=== PATIENT | male | born 1950 | race Caucasian/White ===

== ENCOUNTER 2017-11-13 09:32 | Observation (INO) | payer MEDICARE, OTHER ==
--- NOTE | 2017-11-13 09:47 | EDM.PDOC ---
ED HPI GENERAL MEDICAL PROBLEM - General Stated Complaint: ER VISIT Time Seen by Provider: 11/13/17 09:35 Source of Information: Reports: Patient, Family History Limitations: Reports: Altered Mental Status - History of Present Illness INITIAL COMMENTS - FREE TEXT/NARRATIVE: PT is brought into the emergency department for conmplaints of confusion. Last known well time was approximately 8 AM. Patient left the house at that time to go do chores in the yard. He came back in the house at approximately 8:45. Very confused unsure of the date the place where he was. He did tell his that he thinks he was sitting outside for 45 minutes. He could not give a description why. He cannot recall the last 24 hours. The is concerned/ questioning that he may have fallen off his grain cart he was working on. Pt is not on any blood thinners. Health history-high blood pressure. Last ate- Last night No major surgeries or bleeding in the past 3 months Onset: Sudden Location: Reports: Head Quality: Reports: Throbbing Associated Symptoms: Reports: Confusion - Related Data Allergies Allergy/AdvReac Type Severity Reaction Status Date / Time No Known Allergies Allergy Verified 11/13/17 09:51 Home Meds: Home Meds Aspirin 81 mg PO DAILY 11/13/17 [History] Metoprolol Succinate [Toprol XL] 200 mg PO DAILY 11/13/17 [History] Nitroglycerin [Nitrostat] 0.4 mg SL ASDIRECTED PRN 11/13/17 [History] Rosuvastatin [Crestor] 40 mg PO DAILY 11/13/17 [History] Spironolact/Hydrochlorothiazid [Aldactazide 25-25] 0.5 tab PO DAILY 11/13/17 [ History] Valsartan/Hydrochlorothiazide [Diovan Hct 320-25 mg Tablet] 1 each PO DAILY [History] amLODIPine Besylate [Norvasc] 5 mg PO DAILY 11/13/17 [History] Past Medical History Cardiovascular History: Reports: Hypertension, ID (13 yrs ago. 2 stents-Lad, Diag) - Past Surgical History HEENT Surgical History: Reports: Cataract Surgery (with lenses Jun 2017) ED ROS GENERAL - Review of Systems Review Of Systems: See Below HEENT: Reports: No Symptoms Respiratory: Reports: No Symptoms Cardiovascular: Reports: No Symptoms Endocrine: Reports: No Symptoms GI/Abdominal: Reports: No Symptoms : Reports: No Symptoms Musculoskeletal: Reports: No Symptoms Skin: Reports: No Symptoms Neurological: Reports: No Symptoms Psychiatric: Reports: No Symptoms ED EXAM, GENERAL - Physical Exam Exam: See Below Exam Limited By: No Limitations General Appearance: Alert, WD/WN, No Apparent Distress Throat/Mouth: Normal Inspection, Normal Lips, Normal Teeth, Normal Oropharynx, Normal Voice Head: Other (tenderness to the back of the head, a reden/purple line at the base of the skull horizontal approx 6 inch noted. No cerival tenderness, deformity, or discomfort ) Neck: Normal Inspection, Supple, Non-Tender, Full Range of Motion Respiratory/Chest: No Respiratory Distress, Lungs Clear, Normal Breath Sounds, No Accessory Muscle Use, Chest Non-Tender Cardiovascular: Normal Peripheral Pulses, Regular Rate, Rhythm Rectal (Males) Exam: Normal Exam, Normal Rectal Tone Back Exam: Normal Inspection, Full Range of Motion Extremities: Normal Inspection, Normal Range of Motion, Non-Tender, No Pedal Edema, Normal Capillary Refill Neurological: Alert, Normal Gait, No Motor/Sensory Deficits, Confused, Disoriented, Memory Loss Recent Events. No: Normal Cognition Psychiatric: Normal Affect, Normal Mood Skin Exam: Warm, Dry, Intact, Normal Color, No Rash Course - Vital Signs Last Recorded V/S: Last Vital Signs Temp 35.3 C 11/13/17 09:35 Pulse 69 11/13/17 09:35 Resp 14 11/13/17 09:35 BP 174/90 H 11/13/17 09:35 Pulse Ox 96 11/13/17 09:35 - Orders/Labs/Meds Orders: Active Orders 24 hr Category Date Time Status Cervical Spine wo Cont [CT] Stat Exams 11/13/17 10:00 Taken Head wo Cont [CT] Stat Exams 11/13/17 09:40 Taken Labs: Laboratory Tests 11/13/17 11/13/17 11/13/17 Range/Units 09:51 09:51 09:51 WBC 7.3 (4.0-10.0) x10^3/uL RBC 5.12 (4.5-6.0) x10^6/uL Hgb 14.7 (14.0-18.0) g/dL Hct 45.0 (40.0-52.0) % MCV 87.9 (78.0-93.0) fL MCH 28.7 (26.0-32.0) pg MCHC 32.7 (32.0-36.0) g/dL RDW Coeff of Trish 14.6 (10.0-15.0) % Plt Count 202 (130-400) x10^3/uL Neut % (Auto) 79.2 (50.0-80.0) % Lymph % (Auto) 13.6 L (25.0-50.0) % [place] % (Auto) 5.1 (2.0-11.0) % Eos % (Auto) 1.8 (0.0-4.0) % Baso % (Auto) 0.3 (0.2-1.2) % PT 11.0 (9.6-11.4) SEC INR 1.1 L (2.0-3.5) Sodium 143 (136-145) mmol/L Potassium 3.4 L (3.5-5.1) mmol/L Chloride 106 (98-107) mmol/L Carbon Dioxide 29 (21-32) mmol/L Anion Gap 11.4 (10-20) mmol/L BUN 23 H (7-18) mg/dL Creatinine 1.1 (0.70-1.30) mg/dL Est Cr Clr Drug Dosing TNP Estimated GFR (MDRD) > 60 Glucose 150 H (74-106) mg/dL Calcium 8.8 (8.5-10.1) mg/dL Corrected Calcium 9.20 (8.5-10.1) mg/dL Total Bilirubin 0.5 (0.2-1.0) mg/dL AST 17 (15-37) U/L ALT 32 (16-63) U/L Alkaline Phosphatase 65 (46-116) U/L Troponin I < 0.017 (<=0.056) ng/mL Total Protein 7.1 (6.4-8.2) g/dL Albumin 3.5 (3.4-5.0) g/dL Globulin 3.6 Albumin/Globulin Ratio 0.97 - Radiology Interpretation CT Results Date: 11/13/17 (Negative findings for CT of head and c-spine. ) - Re-Assessments/Exams Free Text/Narrative Re-Assessment/Exam: 11/13/17 10:23 Re-assessment: pt states his head and neck are sore especially tender when touching soft tissue of the neck and left shoulder. He is remembering that he was sweeping the back of the grain truck. The back of his sweatshirt was full of grass and dirt. "I think I fell off the truck". 11/13/17 11:09 Pt continues to improve mentation. He remembers what he had for breakfast and the events that occurred yesterday which he was unable to remember initially. Departure - Departure Time of Disposition: 10:55 Disposition: Refer to Observation Condition: Good Clinical Impression: Concussion injury of brain - Discharge Information Instructions: Head Injury, Adult - Problem List Review Problem List Initiated/Reviewed/Updated: Yes - My Orders Last 24 Hours: My Active Orders 11/13/17 09:40 Head wo Cont [CT] Stat 11/13/17 10:00 Cervical Spine wo Cont [CT] Stat - Assessment/Plan Admission H&P: Please use this note as an admission H&P Last 24 Hours: My Active Orders 11/13/17 09:40 Head wo Cont [CT] Stat 11/13/17 10:00 Cervical Spine wo Cont [CT] Stat Assessment:: 1. Head injury 2. Confusion/disorientation Plan: 1. CT scan results reviewed with pt and spouse- negative findings 2. Labs completed in ER and results reviewed with the pt and spouse 3. Will admit pt overnight for observation. Still has a memory lapse of obvious events that occurred this morning. It is recommended that the patient be admitted for the next 24 hours to watch patient's mentation and insure he does not develop with bleed or worsening conditions. No abnormalities are found over the next 24 hours patient will be discharged in the morning to home. 4. Admit orders place in the computer system. patient discharged from emergency department and placed on the medical surgical unit.
[2017-11-13 10:22] LABS: CHLORIDE,CL 106 mmol/L (98-107); SODIUM,NA 143 mmol/L (136-145)
--- NOTE | 2017-11-13 11:28 | PCM.PN ---
- General Info Date of Service: 11/13/17 Admission Dx/Problem (Free Text): 1. concussion 2. Disorientation 3. Head injury Functional Status: Reports: Pain Controlled, Tolerating Diet, Ambulating Pain Score: 4 - Review of Systems General: Reports: No Symptoms HEENT: Reports: No Symptoms Pulmonary: Reports: No Symptoms Cardiovascular: Reports: No Symptoms Gastrointestinal: Reports: No Symptoms Genitourinary: Reports: No Symptoms Musculoskeletal: Reports: No Symptoms Skin: Reports: No Symptoms Neurological: Reports: No Symptoms Psychiatric: Reports: No Symptoms - Patient Data Vitals - Most Recent: Last Vital Signs Temp 35.3 C 11/13/17 09:35 Pulse 69 11/13/17 09:35 Resp 14 11/13/17 09:35 BP 174/90 H 11/13/17 09:35 Pulse Ox 96 11/13/17 09:35 Lab Results Last 24 Hours: Laboratory Results - last 24 hr 11/13/17 11/13/17 11/13/17 Range/Units 09:51 09:51 09:51 WBC 7.3 (4.0-10.0) x10^3/uL RBC 5.12 (4.5-6.0) x10^6/uL Hgb 14.7 (14.0-18.0) g/dL Hct 45.0 (40.0-52.0) % MCV 87.9 (78.0-93.0) fL MCH 28.7 (26.0-32.0) pg MCHC 32.7 (32.0-36.0) g/dL RDW Coeff of Trish 14.6 (10.0-15.0) % Plt Count 202 (130-400) x10^3/uL Neut % (Auto) 79.2 (50.0-80.0) % Lymph % (Auto) 13.6 L (25.0-50.0) % [place] % (Auto) 5.1 (2.0-11.0) % Eos % (Auto) 1.8 (0.0-4.0) % Baso % (Auto) 0.3 (0.2-1.2) % PT 11.0 (9.6-11.4) SEC INR 1.1 L (2.0-3.5) Sodium 143 (136-145) mmol/L Potassium 3.4 L (3.5-5.1) mmol/L Chloride 106 (98-107) mmol/L Carbon Dioxide 29 (21-32) mmol/L Anion Gap 11.4 (10-20) mmol/L BUN 23 H (7-18) mg/dL Creatinine 1.1 (0.70-1.30) mg/dL Est Cr Clr Drug Dosing TNP Estimated GFR (MDRD) > 60 Glucose 150 H (74-106) mg/dL Calcium 8.8 (8.5-10.1) mg/dL Corrected Calcium 9.20 (8.5-10.1) mg/dL Total Bilirubin 0.5 (0.2-1.0) mg/dL AST 17 (15-37) U/L ALT 32 (16-63) U/L Alkaline Phosphatase 65 (46-116) U/L Troponin I < 0.017 (<=0.056) ng/mL Total Protein 7.1 (6.4-8.2) g/dL Albumin 3.5 (3.4-5.0) g/dL Globulin 3.6 Albumin/Globulin Ratio 0.97 Med Orders - Current: Current Medications Acetaminophen (Tylenol) 650 mg PO Q4H PRN PRN Reason: pain - Exam Quality Assessment: DVT Prophylaxis, Skin Breakdown General: Alert, Oriented HEENT: Pupils Equal, Pupils Reactive, EOMI, Mucous Membr. Moist/[place] Neck: Supple Cardiovascular: Regular Rate, Regular Rhythm GI/Abdominal Exam: Normal Bowel Sounds, Soft, Non-Tender, No Distention, No Abnormal Bruit Back Exam: Normal Inspection, Full Range of Motion Extremities: Normal Inspection, Normal Range of Motion, Non-Tender, No Pedal Edema, Normal Capillary Refill Skin: Warm, Dry, Intact Neurological: Normal Gait, Normal Speech, Normal Tone, Strength Equal Bilateral , Reflexes Equal Bilateral, Sensation Intact, Cranial Nerves Intact, Other ( recent memory limited ) Psy/Mental Status: Alert, Normal Affect, Normal Mood - Problem List Review Problem List Initiated/Reviewed/Updated: Yes - My Orders Last 24 Hours: My Active Orders 11/13/17 09:40 Head wo Cont [CT] Stat 11/13/17 10:00 Cervical Spine wo Cont [CT] Stat 11/13/17 11:04 Admission Status [Patient Status] [ADT] Routine 11/13/17 11:11 Resuscitation Status Routine 11/13/17 11:12 Patient Status [ADT] Routine Oxygen Therapy [RC] PRN VTE/DVT Education [RC] PER UNIT ROUTINE Vital Signs [RC] Q4H 11/13/17 11:14 Up ad Zaira [RC] ASDIRECTED Vital Signs [RC] Q4H Acetaminophen [Tylenol] 650 mg PO Q4H PRN DVT/VTE Prophylaxis Reflex [OM.PC] Routine 11/13/17 11:16 Antiembolic Devices [RC] .Routine VTE/DVT Education [RC] PER UNIT ROUTINE 11/13/17 Lunch Regular Diet [DIET] - Assessment Assessment:: 1. Concussion 2. Disorientation 3. Head injury - Plan Plan:: 1. He was admitted to the emergency department after unkown cause of confusion/ disorientation. Initially and is emergency room visit he could not recall the previous 24 hours. Also stated that he had some muscle tenderness on the right upper shoulder neck region along with a headache. Patient had begun remembering some of the events of the morning however they were pretty limited. The states that he went out this morning around 8 AM and was to be working and is grain truck. He came in the house 45 mins later and did have dirt and grass all over the back of his shirt and on his shoulder. Patient is unsure what happened - but does remember he was sweeping the back of the truck out. Patient was disoriented and was not able to recall any of the events was asking frequent and repeat questions to his . He is brought into the emergency department for further evaluation and treatment. Labs were negative CT was negative. However with patient's limited memory its advised that the patient be admitted and monitored for the next 24 hours to ensure symptoms do not worsen. Pt is up and ambulatory with mild muscle soreness. Denies any other sxs at this time.
[2017-11-13] MEDS ORDERED: NITROGLYCERIN 0.4 MG SL PRN (12:27)
[2017-11-13] MEDS: Acetaminophen 325 MG Tab PO PRN ×2 (12:56→17:47)
[2017-11-13] MEDS ORDERED: Aspirin 81 MG Tab.EC*PT OWN MED PO SCH (20:00)
[2017-11-13] MEDS ORDERED: ROSUVASTATIN 40 MG PO SCH (20:00)
[2017-11-14] MEDS ORDERED: VALSARTAN PO SCH (08:00)
[2017-11-14] MEDS ORDERED: HYDROCHLOROTHIAZIDE PO SCH (08:00)
--- NOTE | 2017-11-14 09:45 | PCM.DCSUM1 ---
Discharge Summary - Hospital Course HPI Initial Comments: PT was brought into the emergency department for complaints of confusion. Pt was very confused and could not remember the 24 hours prior to his visit to the ER. Initially it was unsure if the pt had fallen off of a grain truck he was working on or if he could be having a medical emergency. A CT was ordered and Labs. While pt was in the ER some isolated memory began to come back. Pt was working on his grain truck and he remembered trying to get out of the truck and then remember being on the ground and needing to wipe his shoulder and back off. Unknown if pt was unconscious but due to the time frame and pt's condition it is likely he had a period of consciousness. CT scan was negative, labs were negative, vitals remained within pt's normal. It was decided based on the pt's overall condition and severity of his memory lapse he would be best cared for if he would be placed in observation over night incase worsening confusion or a head bleed would develop. During the night the pt needed PRN tylenol for a mild headache and muscle discomfort. Pt was ambulatory walking the halls without assistance, eating food without becoming nauseated, and slept throughout the night without concern. Pt states he feels much better than yesterday and his memory has returned almost to his baseline. Pt still has about an hour of time he does not remember however, everything else he is able to recall without concern. - Discharge Data Discharge Date: 11/14/17 Discharge Disposition: Home, Self-Care 01 Condition: Good - Discharge Diagnosis/Problem(s) (1) Concussion injury of brain SNOMED Code(s): 424241267 ICD Code: S06.0X9A - CONCUSSION W LOSS OF CONSCIOUSNESS OF UNSP DURATION, INIT Status: Acute Current Visit: Yes - Patient Instructions Diet: Regular Diet as Tolerated Driving: Do Not Drive Driving, Other: Please refrain from driving for 1 week to allow time for healing Showering/Bathing: May Shower - Discharge Plan Home Medications: Home Meds Aspirin [Ecotrin] 81 mg PO BEDTIME 11/13/17 [History] Metoprolol Succinate [Toprol XL] 100 mg PO BID 11/13/17 [History] Nitroglycerin [Nitrostat] 0.4 mg SL ASDIRECTED PRN 11/13/17 [History] Rosuvastatin [Crestor] 40 mg PO BEDTIME 11/13/17 [History] Valsartan/Hydrochlorothiazide [Diovan Hct 320-25 mg Tablet] 1 each PO DAILY [History] Acetaminophen [Tylenol] 650 mg PO Q4H PRN tablet 11/14/17 [Rx] Patient Handouts: Concussion, Adult, [id number], Head Injury, Adult Forms: Return to Work/Inpatient [facility] Referrals: Vladimir Rowe PA-C [Primary Care Provider] - - General Info Date of Service: 11/14/17 Functional Status: Reports: Pain Controlled, Tolerating Diet, Ambulating, Urinating - Review of Systems General: Reports: No Symptoms HEENT: Reports: No Symptoms Pulmonary: Reports: No Symptoms Cardiovascular: Reports: No Symptoms Gastrointestinal: Reports: No Symptoms Genitourinary: Reports: No Symptoms Musculoskeletal: Reports: No Symptoms Skin: Reports: No Symptoms Neurological: Reports: No Symptoms Psychiatric: Reports: No Symptoms - Patient Data Vitals - Most Recent: Last Vital Signs Temp 36.9 C 11/14/17 05:16 Pulse 66 11/14/17 05:16 Resp 19 11/14/17 05:16 BP 132/74 11/14/17 05:16 Pulse Ox 96 11/14/17 07:19 Weight - Most Recent: 124.398 kg I&O - Last 24 hours: Intake & Output 11/13/17 11/14/17 11/14/17 22:59 06:59 14:59 Intake Total 540 350 540 Balance 540 350 540 Lab Results - Last 24 hrs: Laboratory Results - last 24 hr 11/13/17 11/13/17 11/13/17 Range/Units 09:51 09:51 09:51 WBC 7.3 (4.0-10.0) x10^3/uL RBC 5.12 (4.5-6.0) x10^6/uL Hgb 14.7 (14.0-18.0) g/dL Hct 45.0 (40.0-52.0) % MCV 87.9 (78.0-93.0) fL MCH 28.7 (26.0-32.0) pg MCHC 32.7 (32.0-36.0) g/dL RDW Coeff of Trish 14.6 (10.0-15.0) % Plt Count 202 (130-400) x10^3/uL Neut % (Auto) 79.2 (50.0-80.0) % Lymph % (Auto) 13.6 L (25.0-50.0) % [place] % (Auto) 5.1 (2.0-11.0) % Eos % (Auto) 1.8 (0.0-4.0) % Baso % (Auto) 0.3 (0.2-1.2) % PT 11.0 (9.6-11.4) SEC INR 1.1 L (2.0-3.5) Sodium 143 (136-145) mmol/L Potassium 3.4 L (3.5-5.1) mmol/L Chloride 106 (98-107) mmol/L Carbon Dioxide 29 (21-32) mmol/L Anion Gap 11.4 (10-20) mmol/L BUN 23 H (7-18) mg/dL Creatinine 1.1 (0.70-1.30) mg/dL Est Cr Clr Drug Dosing TNP Estimated GFR (MDRD) > 60 Glucose 150 H (74-106) mg/dL Calcium 8.8 (8.5-10.1) mg/dL Corrected Calcium 9.20 (8.5-10.1) mg/dL Total Bilirubin 0.5 (0.2-1.0) mg/dL AST 17 (15-37) U/L ALT 32 (16-63) U/L Alkaline Phosphatase 65 (46-116) U/L Troponin I < 0.017 (<=0.056) ng/mL Total Protein 7.1 (6.4-8.2) g/dL Albumin 3.5 (3.4-5.0) g/dL Globulin 3.6 Albumin/Globulin Ratio 0.97 Med Orders - Current: Current Medications Acetaminophen (Tylenol) 650 mg PO Q4H PRN PRN Reason: pain Last Admin: 11/13/17 17:47 Dose: 650 mg Aspirin (Halfprin) 81 mg PO BEDTIME RAZA Last Admin: 11/13/17 19:40 Dose: 81 mg Nitroglycerin (Nitrostat) 0.4 mg SL ASDIRECTED PRN PRN Reason: Pain (Metoprolol Succinate [Toprol Xl ] 200 Mg Tabs)*Pt Own Med* 100 mg PO BID [facility] Last Admin: 11/14/17 07:39 Dose: 100 mg (Rosuvastatin [ Crestor] 40 Mg Tab)* Pt Own Med* 40 mg PO BEDTIME [facility] Last Admin: 11/13/17 19:41 Dose: 40 mg (Valsartan/Hydrochlorothiazide [Diovan Hct 320-25 Mg Tab])*Pt Own Med* 1 each PO DAILY [facility] Last Admin: 11/14/17 07:38 Dose: 1 each - Exam General: Reports: Alert, Oriented HEENT: Reports: Pupils Equal, Pupils Reactive, EOMI, Mucous Membr. Moist/[place] Neck: Reports: Supple Lungs: Reports: Clear to Auscultation, Normal Respiratory Effort Cardiovascular: Reports: Regular Rate, Regular Rhythm GI/Abdominal Exam: Normal Bowel Sounds, Soft, Non-Tender, No Distention, No Abnormal Bruit Back Exam: Reports: Normal Inspection, Full Range of Motion Extremities: Normal Inspection, Normal Range of Motion, Non-Tender, No Pedal Edema, Normal Capillary Refill Skin: Reports: Warm, Dry, Intact Wound/Incisions: Reports: Healing Well Neurological: Reports: No New Focal Deficit Psy/Mental Status: Reports: Alert, Normal Affect, Normal Mood
== END 2017-11-14 10:00 | disposition home or self-care (01) ==
LOC: VM.ED 09:32 → VM.MS 11:04 → UNDOADMOB 11:08 → UNDODISOB 11-14 10:00
PROVIDERS: ADMIT Nurse Practitioner; ATTEND Nurse Practitioner
DX: S06.0X9A Concussion with loss of consciousness of unspecified duration, initial encounter (principal); V89.9XXA Person injured in unspecified vehicle accident, initial encounter; Z79.82 Long term (current) use of aspirin; Z79.899 Other long term (current) drug therapy
CPT/HCPCS: 36415; 70450; 72125; 80053; 84484; 85025; 85610; 94760; 99285; A9270; 99284-GF; G0378

== ENCOUNTER 2020-08-01 08:03 | Day surgery (SDC) | payer MEDICARE, OTHER ==
[2020-08-01] MEDS: Lactated Ringers 1,000 ML IV SCH (08:31)
[2020-08-01] MEDS ORDERED: fentaNYL 100 MCG/2 ML SDV ONE (09:42)
[2020-08-01] MEDS ORDERED: Propofol 200 MG/20 ML SDV ONE (09:42)
--- NOTE | 2020-08-01 12:45 | OR ---
DATE OF SURGERY: 08/01/2020. REFERRING PROVIDER: ANA PAULA Gallardo PRE-OPERATIVE DIAGNOSIS: Screening colonoscopy. This is the patient's first colonoscopy. There is no known family history of colon cancer or colon polyps. POST-OPERATIVE DIAGNOSES: 1. Total of 4 polyps removed today. a. 3 mm polyp x2 at 80 cm. b. 2 mm polyp at 60 cm. c. 5 mm polyp at 25 cm, removed with hot snare. 2. Mild hemorrhoids, not acutely inflamed. PROCEDURE: Colonoscopy with polypectomy x4 (3 using cold forceps and 1 using hot snare). SURGEON: Puma Delacruz M.D. ANESTHESIA: Monitored anesthesia care. BOWEL PREP: Good. Gualberto is a 69-year-old male who was brought to the endoscopy suite after discussing risks and benefits of the procedure. Informed consent was obtained for conscious sedation and colonoscopy with or without biopsy and/or polypectomy. We also discussed possibility of missed lesions. Pre-procedure exam was unremarkable. IV, oxygen, and monitors were placed. The patient was placed in the left lateral decubitus position. Sedation was administered and a digital rectal exam was performed and unremarkable. Colonoscope was passed into the rectum and slowly advanced all the way to the cecum. Cecum was viewed and photographed. The colonoscope was slowly withdrawn and the mucosa was closed observed in a direct circumferential manner. The ascending colon was remarkable for 3 mm polyp x2 at around 80 cm. These were both removed using cold forceps. The transverse colon was remarkable for 2 mm polyp at 60 cm, removed using cold forceps. The descending colon was unremarkable. The sigmoid colon revealed 5 mm polyp at 25 cm, removed using hot snare. Retroflexion was performed and rectal mucosa was remarkable for some mild hemorrhoids, not acutely inflamed. Scope was removed. The patient tolerated the procedure well. The patient was monitored until that baseline status. Discharge instructions were reviewed and the patient was discharged in good condition. COMPLICATIONS: None. TOTAL TIME: 23 minutes. ESTIMATED BLOOD LOSS: About 1 mL. RECOMMENDATIONS/FOLLOW-UP: We will await results of path report to determine ideal followup interval. We will have the patient hold his aspirin for 3 days to limit any chance of bleeding from polypectomy sites. I would like to kindly thank Vladimir Rowe for this referral. DMB: 08/01/2020 10:41:31 MODL: 08/01/2020 12:03:54 /[id number]
== END 2020-08-01 11:45 | disposition home or self-care (01) ==
LOC: VM.SDS 08:03
PROVIDERS: ATTEND Family Medicine
DX: Z12.11 Encounter for screening for malignant neoplasm of colon (principal); D12.5 Benign neoplasm of sigmoid colon; D12.2 Benign neoplasm of ascending colon; K64.9 Unspecified hemorrhoids; Q85.8 Other phakomatoses, not elsewhere classified; I10 Essential (primary) hypertension; I25.2 Old myocardial infarction; G47.33 Obstructive sleep apnea (adult) (pediatric); I25.10 Atherosclerotic heart disease of native coronary artery without angina pectoris; E66.9 Obesity, unspecified; Z01.812 Encounter for preprocedural laboratory examination; Z20.822 Contact with and (suspected) exposure to COVID-19; Z68.37 Body mass index [BMI] 37.0-37.9, adult; Z79.82 Long term (current) use of aspirin; Z79.899 Other long term (current) drug therapy
CPT/HCPCS: 00812; 88305; 88342; J2704; J3010; J7120; U0002